=== PATIENT | female | born 1960 | race American Indian/Alaskan Native ===

== ENCOUNTER 2018-08-22 03:32 | Emergency (ER) | payer MEDICAID ==
[2018-08-22] MEDS ORDERED: NACL 0.9% 1000 ML 1,000 ML IV ONE (04:51)
[2018-08-22] MEDS ORDERED: HumuLIN R SUB-Q ONE (04:52)
[2018-08-22 04:58] VITALS: BP 157/83
[2018-08-22 05:34] LABS: BUN/Creatinine Ratio 14; Blood Urea Nitrogen 15 mg/dL (7-17); Calcium 8.9 mg/dL (8.4-10.2); Hemolysis Index 8
--- NOTE | 2018-08-22 06:04 | Emergency Department Report ---
ED General Adult HPI - General Chief complaint: Hyperglycemia Stated complaint: HIGH BLOOD SUGAR Time Seen by Provider: 08/22/18 04:42 Source: patient, EMS Mode of arrival: Ambulatory Limitations: No Limitations - History of Present Illness Initial comments: Mrs. Maynard is a very pleasant 58-year-old female with history of diabetes mellitus for the last 9 years. She recently was taken off insulin therapy and placed on metformin and sulfonylurea. Her hemoglobin A1c was currently six last month. Her PCP resumed recently insulin 7030 and Levemir this past . FOr the past severe days, she was ill. She's had polyuria polydipsia mild blurring mild headache. she is concerned about uncontrolled blood sugar and possible DKA. -: Gradual, days(s) (3), week(s) (2) Severity scale (0 -10): 0 Consistency: constant - Related Data Home Medications Medication Instructions Recorded Confirmed Last Taken FLUoxetine HCL [Fluoxetine HCl] 40 mg PO DAILY 10/26/17 10/26/17 10/25/17 Insulin NPH Hum/Reg Insulin Hm 30 1000units SQ AC 10/26/17 10/26/17 10/25/17 [HumuLIN 70-30 Vial] Lisinopril/Hydrochlorothiazide 1 each PO DAILY 10/26/17 10/26/17 10/25/17 [Zestoretic 20-12.5 mg] Pregabalin [Lyrica] 150 mg PO BID 10/26/17 10/26/17 10/25/17 Ranitidine HCl [Heartburn Relief] 150 mg PO BID 10/26/17 10/26/17 10/25/17 Simvastatin 80 mg PO QAM 10/26/17 10/26/17 10/24/17 Previous Rx's Medication Instructions Recorded Last Taken Type Ciprofloxacin HCl [Ciprofloxacin 500 mg PO Q12H #10 tab 10/26/17 Unknown Rx TAB] Allergies Allergy/AdvReac Type Severity Reaction Status Date / Time pseudoephedrine Allergy Hives Verified 10/25/17 19:50 [facility] ED Review of Systems ROS: Stated complaint: HIGH BLOOD SUGAR Other details as noted in HPI Comment: All other systems reviewed and negative Constitutional: malaise Endocrine: increased thirst, increased urine Neurological: headache ED Past Medical Hx - Past Medical History Previous Medical History?: Yes Hx Hypertension: Yes Hx Congestive Heart Failure: No Hx Diabetes: Yes Hx GERD: Yes Hx Asthma: No Additional medical history: Neuropathy, High cholesterol, sleep apnea - Surgical History Past Surgical History?: Yes Hx Cholecystectomy: Yes Additional Surgical History: Back surgery - Social History Smoking Status: Never Smoker Substance Use Type: None - Medications Home Medications: Home Medications Medication Instructions Recorded Confirmed Last Taken Type Ciprofloxacin HCl [Ciprofloxacin 500 mg PO Q12H #10 tab 10/26/17 Unknown Rx TAB] FLUoxetine HCL [Fluoxetine HCl] 40 mg PO DAILY 10/26/17 10/26/17 10/25/17 History Insulin NPH Hum/Reg Insulin Hm 30 1000units SQ AC 10/26/17 10/26/17 10/25/17 History [HumuLIN 70-30 Vial] Lisinopril/Hydrochlorothiazide 1 each PO DAILY 10/26/17 10/26/17 10/25/17 History [Zestoretic 20-12.5 mg] Pregabalin [Lyrica] 150 mg PO BID 10/26/17 10/26/17 10/25/17 History Ranitidine HCl [Heartburn Relief] 150 mg PO BID 10/26/17 10/26/17 10/25/17 His tory Simvastatin 80 mg PO QAM 10/26/17 10/26/17 10/24/17 History ED Physical Exam - General Limitations: No Limitations General appearance: alert, in no apparent distress - Head Head exam: Present: atraumatic, normocephalic - Eye Eye exam: Present: normal appearance - ENT ENT exam: Present: mucous membranes moist - Neck Neck exam: Present: normal inspection - Respiratory Respiratory exam: Present: normal lung sounds bilaterally. Absent: respiratory distress - Cardiovascular Cardiovascular Exam: Present: regular rate, normal rhythm, normal heart sounds. Absent: systolic murmur, diastolic murmur, rubs, gallop - GI/Abdominal GI/Abdominal exam: Present: soft, normal bowel sounds. Absent: distended, tenderness, guarding, rebound - Extremities Exam Extremities exam: Present: normal inspection - Back Exam Back exam: Present: normal inspection - Neurological Exam Neurological exam: Present: alert, oriented X3 - Psychiatric Psychiatric exam: Present: normal affect, normal mood - Skin Skin exam: Present: warm, dry, intact, normal color. Absent: rash ED Course Vital Signs 08/22/18 08/22/18 03:37 04:50 Temperature 98.5 F 98.3 F Pulse Rate 111 H 94 H Respiratory 18 15 Rate Blood Pressure 172/103 Blood Pressure 157/83 [Right] O2 Sat by Pulse 97 100 Oximetry ED Medical Decision Making - Lab Data Result diagrams: 08/22/18 05:07 - Medical Decision Making Hyperglycemia due to recent change in medication. Received IV fluid in the ED as well as subcutaneous regular insulin. Discharged to follow-up PCP this following week. Critical care attestation.: If time is entered above; I have spent that time in minutes in the direct care of this critically ill patient, excluding procedure time. ED Disposition Clinical Impression: Hyperglycemia due to type 2 diabetes mellitus Disposition: DC-01 TO HOME OR SELFCARE Is pt being admited?: No Does the pt Need Aspirin: No Condition: Stable Additional Instructions: Please see Dr. Miller this upcoming week. Referrals: [facility] [Outside] - 3-5 Days
== END 2018-08-22 05:50 | disposition home or self-care (01) ==
LOC: ED 03:32
DX: E11.65 Type 2 diabetes mellitus with hyperglycemia (principal); I10 Essential (primary) hypertension; E11.40 Type 2 diabetes mellitus with diabetic neuropathy, unspecified; E78.00 Pure hypercholesterolemia, unspecified; K21.9 Gastro-esophageal reflux disease without esophagitis; G47.30 Sleep apnea, unspecified; Z88.8 Allergy status to other drugs, medicaments and biological substances; Z79.4 Long term (current) use of insulin; Z90.49 Acquired absence of other specified parts of digestive tract
CPT/HCPCS: 36415; 80048; 82962; 96360; 96372; 99284; J7030; J1815